=== PATIENT | male | born 1930 | race Caucasian/White ===

== ENCOUNTER 2016-07-21 11:04 | Emergency (ER) | payer OTHER ==
[2016-07-21 11:12] VITALS: TEMP 98.2; BMI 26.4
[2016-07-21] MEDS ORDERED: SODIUM CHLORIDE 0.9% 3 ML FLUSH FLUSH PRN (11:20)
[2016-07-21] MEDS ORDERED: ASPIRIN 325 MG TAB PO ONE (11:20)
[2016-07-21 11:33] LABS: AUTOMATED EOSINOPHIL 0.9 % (0-5); AUTOMATED LYMPH 25.9 % (17-44); AUTOMATED MONOCYTE 8.6 % (3-10); AUTOMATED NEUTROPHIL 63.6 % (45-76); MPV 9.1 fL (7.4-10.4)
[2016-07-21 11:53] LABS: BLOOD UREA NITROGEN 15 MG/DL (9-20); CALCIUM 8.8 MG/DL (8.4-10.2); CALCULATED OSMOLALITY 276 MOs/Kg (270-290); CHLORIDE 107 mEq/L (98-107); GLUCOSE 100 MG/DL (70-99); SODIUM LEVEL 143 mEq/L (137-146); TOTAL PROTEIN 8.1 G/DL (6.3-8.2)
[2016-07-21 11:58] LABS: LEUKOCYTES/URINE NEG (NEGATIVE); NITRITE/URINE NEG (NEGATIVE); URINE OCCULT BLOOD NEG (NEG/TRACE)
--- NOTE | 2016-07-21 12:00 | DIRPT ---
CLINICAL DATA: Chest pain chest pain EXAM: PORTABLE CHEST 1 VIEW COMPARISON: 05/03/2016 FINDINGS: Cardiomediastinal silhouette is stable. No acute infiltrate or pleural effusion. No pulmonary edema. Bony thorax is stable. IMPRESSION: No active disease. Electronically Signed By: Srinath Ahumada M.D. On: 07/21/2016 11:58
[2016-07-21 12:14] LABS: PARTIAL THROMB. TIME 25.2 SEC (22-35); PT-INR 1.1
--- NOTE | 2016-07-21 12:25 | EDPRACDOC ---
- General Information Chief Complaint: Chest Pain Stated Complaint: CHEST PAIN Time Seen by Provider: 07/21/16 11:37 Information Source: Patient Mode of Arrival: Car Home Medications: Home Medications Aspirin [Aspirin, Chewable] 81 mg PO DAILY 01/14/13 Simvastatin 40 mg PO QHS 01/14/13 Tamsulosin HCl [Flomax] 0.4 mg PO HS 01/14/13 Metoprolol Tartrate 25 mg PO BID #30 tablet 07/21/16 Allergies/Adverse Reactions: Allergies Allergy/AdvReac Type Severity Reaction Status Date / Time codeine Allergy Unknown Unknown Verified 07/21/16 12:14 oxycodone HCl [From Percocet] Allergy Unknown Unknown Verified 07/21/16 12:14 - History of Present Illness 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 NO CHEST PAIN NO CHEST PRESSURE NO NEAR SYNCOPE ROUTINE CHECK OF VITAL SIGNS DEMONSTRATE A RAPID HEART RATE. PATIENT SEEN AT PRIMARY CARE PHYSICIAN 'S OFFICE HEART RATE 130 REFERRED TO EMERGED FROM FURTHER EVALUATION. PATIENT HAS HISTORY OF AFIB. HAS A HISTORY REMOTELY OF GI BLEEDING WHILE ON ANTICOAGULATION. ED Past Medical History - History Reviewed Yes Nurses notes reviewed and agree except as marked - Patient Medical History Cardiac History: Reports: Coronary Artery Disease, Atrial Fibrillation, Hypertension, Heart Attack, Cardiac Catheterization, Hypercholesterolemia GI/ History: Reports: BPH Musculoskeletal History: Reports: Arthritis (? IN HANDS) Psychological History: Denies: Depression Systemic History: Denies: Cancer Surgical History: Reports: Cardiac Catheterization, Tonsillectomy/Adnoidectomy - Family Medical History Reports: Cardiac Disorders - Social Medical History Smoking Status: Never smoker ETOH: None Substance Abuse: None Lives With: Family Lives In: Home EDM Review of Systems - Review of Systems ROS Negative Except as Marked: Yes All systems reviewed and were negative except as marked - Physical Exam Constitutional: Alert (Awake), No apparent distress Oriented to: Time, Person, Place Last recorded Vital Signs: Last Vital Signs Temp 98.2 F 07/21/16 11:09 Pulse 83 07/21/16 11:42 Resp 16 07/21/16 11:42 BP 88/61 L 07/21/16 11:42 Pulse Ox 93 07/21/16 11:42 Oxygen Pulse Oxygen Saturation 93 O2 Device Room Air Oxygen Flow Rate Fraction of Inspired Oxygen ( FIO2) - HEENT Head: Normal ( normocephalic) Eye Exam: Normal (PERRL, EOMI, Sclera white) Oropharynx: Normal (Pharynx:Moist without exudate,Gums-no swelling) Tympanic Membrane: Normal ENT EAC: Normal TMJ: Normal Nose: No Symptoms Reported (septum midline) Neck: Normal (FROM, trachea at midline) - Respiratory/Cardiovascular Respiratory: Normal - CTA (BBS clear to auscultation without adventitious sounds ) Cardiovascular: Irregular. negative: Bradycardia, Tachycardia, Diastolic murmur , Systolic murmur - GI Auscultation: Normal (NABS) Palpation: Normal (Soft,No rebound or guarding, non distended) Tenderness: Non tender Koenig's Sign: Negative - Musculoskeletal Back: Normal (Non-Tender) Extremities: Normal (Normal tone, Pulses 2+ No cyanosis or edema, FROM) - Integumentary Skin: Normal, Warm, Dry Lymphatics: Normal (no adenopathy) - Neurologic Memory Impaired: Normal Motor Function: Normal (Normal tone, Pulses 2+ No cyanosis or edema, FROM) Cranial Nerve: Normal (CN II-X11 intact sensation, strength 5/5) Cerebellar: Normal Mood Description: Normal Perception: Normal - Action ASA given in the ED: No - Results 07/21/16 11:15 07/21/16 11:15 WBC 8.9 xk/uL (3.8-10.8) 07/21/16 11:15 RBC 5.01 xM/uL (4.70-6.10) 07/21/16 11:15 Hgb 15.1 g/dL (14.0-18.0) 07/21/16 11:15 Hct 44.6 % (42-52) 07/21/16 11:15 MCV 89 fL (80-94) 07/21/16 11:15 MCH 30.2 pg (27-32) 07/21/16 11:15 MCHC 33.9 g/dl (33-36) 07/21/16 11:15 RDW 14.1 % (11.5-14.5) 07/21/16 11:15 Plt Count 220 xk/uL (130-400) 07/21/16 11:15 MPV 9.1 fL (7.4-10.4) 07/21/16 11:15 Neut % (Auto) 63.6 % (45-76) 07/21/16 11:15 Lymph % (Auto) 25.9 % (17-44) 07/21/16 11:15 [place] % (Auto) 8.6 % (3-10) 07/21/16 11:15 Eos % (Auto) 0.9 % (0-5) 07/21/16 11:15 Baso % (Auto) 1.0 % (0-2) 07/21/16 11:15 Absolute Neuts (auto) 5.61 xk/uL (1.7-8.2) 07/21/16 11:15 Absolute Lymphs (auto) 2.23 xk/uL (0.65-4.75) 07/21/16 11:15 PT 10.9 SEC (9.2-11.2) 07/21/16 11:15 INR 1.1 07/21/16 11:15 APTT 25.2 SEC (22-35) 07/21/16 11:15 Sodium 143 mEq/L (137-146) 07/21/16 11:15 Potassium 5.0 mEq/L (3.5-5.1) 07/21/16 11:15 Chloride 107 mEq/L (98-107) 07/21/16 11:15 Carbon Dioxide 23 mMOL/L (22-33) 07/21/16 11:15 Anion Gap 18 mEq/L (8-16) H 07/21/16 11:15 BUN 15 MG/DL (9-20) 07/21/16 11:15 Creatinine 0.90 MG/DL (0.66-1.25) 07/21/16 11:15 Estimated GFR (MDRD) > 60 mL/min (>=60) 07/21/16 11:15 Glucose 100 MG/DL (70-99) H 07/21/16 11:15 Calculated Osmolality 276 MOs/Kg (270-290) 07/21/16 11:15 Calcium 8.8 MG/DL (8.4-10.2) 07/21/16 11:15 Total Bilirubin 0.9 MG/DL (0.2-1.3) 07/21/16 11:15 AST 30 IU/L (17-59) 07/21/16 11:15 ALT 19 IU/L (21-72) L 07/21/16 11:15 Alkaline Phosphatase 79 IU/L (50-160) 07/21/16 11:15 Troponin I < 0.01 ng/mL (<.04) 07/21/16 11:15 Auy-H-Mlenspjqnsj Pept 3850 pg/mL (0-1800) H 07/21/16 11:15 Total Protein 8.1 G/DL (6.3-8.2) 07/21/16 11:15 Albumin 4.2 G/DL (3.5-5.0) 07/21/16 11:15 Urine Color Pale yellow 07/21/16 11:41 Urine Clarity Clear 07/21/16 11:41 Urine pH 6.0 (5.0-8.0) 07/21/16 11:41 Ur Specific [place] 1.005 (1.003-1.035) 07/21/16 11:41 Urine Protein Neg (NEG/TRACE) 07/21/16 11:41 Urine Glucose (UA) Neg (NEGATIVE) 07/21/16 11:41 Urine Ketones Neg (NEGATIVE) 07/21/16 11:41 Urine Occult Blood Neg (NEG/TRACE) 07/21/16 11:41 Urine Nitrite Neg (NEGATIVE) 07/21/16 11:41 Urine Bilirubin Neg (NEGATIVE) 07/21/16 11:41 Urine Urobilinogen <2.0 MG/DL (0-1) 07/21/16 11:41 Ur Leukocyte Esterase Neg (NEGATIVE) 07/21/16 11:41 Urine RBC 2-5 (0-2) H 07/21/16 11:41 Urine WBC 2-5 (0-2) H 07/21/16 11:41 Ur Epithelial Cells Occ 07/21/16 11:41 Urine Bacteria Few (NEG/FEW) 07/21/16 11:41 Hyaline Casts 5-10 (0-2) H 07/21/16 11:41 Urine Mucus Sm amt (NEG/OCC) 07/21/16 11:41 Lab Results 07/21/16 07/21/16 07/21/16 11:41 11:15 11:15 WBC 8.9 RBC 5.01 Hgb 15.1 Hct 44.6 MCV 89 MCH 30.2 MCHC 33.9 RDW 14.1 Plt Count 220 MPV 9.1 Neut % (Auto) 63.6 Lymph % (Auto) 25.9 [place] % (Auto) 8.6 Eos % (Auto) 0.9 Baso % (Auto) 1.0 Absolute Neuts (auto) 5.61 Absolute Lymphs (auto) 2.23 PT 10.9 INR 1.1 APTT 25.2 Sodium Potassium Chloride Carbon Dioxide Anion Gap BUN Creatinine Estimated GFR (MDRD) Glucose Calculated Osmolality Calcium Total Bilirubin AST ALT Alkaline Phosphatase Troponin I Jxx-K-Poagasbuvuz Pept Total Protein Albumin Urine Color Pale yellow Urine Clarity Clear Urine pH 6.0 Ur Specific [place] 1.005 Urine Protein Neg Urine Glucose (UA) Neg Urine Ketones Neg Urine Occult Blood Neg Urine Nitrite Neg Urine Bilirubin Neg Urine Urobilinogen <2.0 Ur Leukocyte Esterase Neg Urine RBC 2-5 H Urine WBC 2-5 H Ur Epithelial Cells Occ Urine Bacteria Few Hyaline Casts 5-10 H Urine Mucus Sm amt 07/21/16 11:15 WBC RBC Hgb Hct MCV MCH MCHC RDW Plt Count MPV Neut % (Auto) Lymph % (Auto) [place] % (Auto) Eos % (Auto) Baso % (Auto) Absolute Neuts (auto) Absolute Lymphs (auto) PT INR APTT Sodium 143 Potassium 5.0 Chloride 107 Carbon Dioxide 23 Anion Gap 18 H BUN 15 Creatinine 0.90 Estimated GFR (MDRD) > 60 Glucose 100 H Calculated Osmolality 276 Calcium 8.8 Total Bilirubin 0.9 AST 30 ALT 19 L Alkaline Phosphatase 79 Troponin I < 0.01 Gjw-[id number]-Xuehzdtqlpc Pept 3850 H Total Protein 8.1 Albumin 4.2 Urine Color Urine Clarity Urine pH Ur Specific [place] Urine Protein Urine Glucose (UA) Urine Ketones Urine Occult Blood Urine Nitrite Urine Bilirubin Urine Urobilinogen Ur Leukocyte Esterase Urine RBC Urine WBC Ur Epithelial Cells Urine Bacteria Hyaline Casts Urine Mucus Laboratory Results - last 24 hr 07/21/16 07/21/16 07/21/16 11:15 11:15 11:15 WBC 8.9 RBC 5.01 Hgb 15.1 Hct 44.6 MCV 89 MCH 30.2 MCHC 33.9 RDW 14.1 Plt Count 220 MPV 9.1 Neut % (Auto) 63.6 Lymph % (Auto) 25.9 [place] % (Auto) 8.6 Eos % (Auto) 0.9 Baso % (Auto) 1.0 Absolute Neuts (auto) 5.61 Absolute Lymphs (auto) 2.23 PT 10.9 INR 1.1 APTT 25.2 Sodium 143 Potassium 5.0 Chloride 107 Carbon Dioxide 23 Anion Gap 18 H BUN 15 Creatinine 0.90 Estimated GFR (MDRD) > 60 Glucose 100 H Calculated Osmolality 276 Calcium 8.8 Total Bilirubin 0.9 AST 30 ALT 19 L Alkaline Phosphatase 79 Troponin I < 0.01 Ntz-D-Hfmueeciuyb Pept 3850 H Total Protein 8.1 Albumin 4.2 Urine Color Urine Clarity Urine pH Ur Specific [place] Urine Protein Urine Glucose (UA) Urine Ketones Urine Occult Blood Urine Nitrite Urine Bilirubin Urine Urobilinogen Ur Leukocyte Esterase Urine RBC Urine WBC Ur Epithelial Cells Urine Bacteria Hyaline Casts Urine Mucus 07/21/16 11:41 WBC RBC Hgb Hct MCV MCH MCHC RDW Plt Count MPV Neut % (Auto) Lymph % (Auto) [place] % (Auto) Eos % (Auto) Baso % (Auto) Absolute Neuts (auto) Absolute Lymphs (auto) PT INR APTT Sodium Potassium Chloride Carbon Dioxide Anion Gap BUN Creatinine Estimated GFR (MDRD) Glucose Calculated Osmolality Calcium Total Bilirubin AST ALT Alkaline Phosphatase Troponin I Kyr-J-Wrxmqgiaftq Pept Total Protein Albumin Urine Color Pale yellow Urine Clarity Clear Urine pH 6.0 Ur Specific [place] 1.005 Urine Protein Neg Urine Glucose (UA) Neg Urine Ketones Neg Urine Occult Blood Neg Urine Nitrite Neg Urine Bilirubin Neg Urine Urobilinogen <2.0 Ur Leukocyte Esterase Neg Urine RBC 2-5 H Urine WBC 2-5 H Ur Epithelial Cells Occ Urine Bacteria Few Hyaline Casts 5-10 H Urine Mucus Sm amt Laboratory Results 07/21/16 11:15 07/21/16 11:15 - EKG EKG #1 EKG Time: 11:13 -: Yes EKG interpreted by me Rate: bpm: 94 [place]: Normal Rhythm: Afib Block: None Hypertrophy: None ST: Nons[facility] - Diagnostic Imaging Chest Image interpreted by: Radiologist Patient Name: NAN CHAVARRIA JR LOC: ED : 1930 AGE: 85 Order Date:07/21/16 Date of Service: Report # [id number] Ord Physician: Melecio Lawson Exam # [id number] Emergency Physician: Vianney Corbett MD Exam(s): [id number] RAD/DG CHEST PORTABLE CLINICAL DATA: Chest pain chest pain EXAM: PORTABLE CHEST 1 VIEW COMPARISON: 05/03/2016 FINDINGS: Cardiomediastinal silhouette is stable. No acute infiltrate or pleural effusion. No pulmonary edema. Bony thorax is stable. IMPRESSION: No active disease. Electronically Signed By: Srinath Ahumada M.D. On: 07/21/2016 11:58 Electronically Signed By: Srinath Ahumada MD Electronically Signed Date/Time: Dictate Date/Time: 07/21/16 1156 Technologist: April Cervantes Transcribed By: Pepe Transcribed Date/Time: 07/21/16 1158 - Additional Information BP TRENDS WITH PRIOR VISITS REVIEWED: PT BASELINE SBP 88 - 125, TODAYS VITALS ARE WNL FOR PATIENT. PT FOLLOWED CLOSELY BY PCP, WILL DEFER ANTICOAG DECISION TO PCP - Departure Final Diagnosis: RATE CONTROLLED ATRIAL FIBRILLATION, Atrial fibrillation with rapid ventricular response Instructions: Chest Pain (ED), A-fib (Atrial Fibrillation) (ED) Education/Counseling Given To: Patient Education/Counseling Given Regarding: Diagnosis, Treatment, Prognosis Referrals: Nam Buckley MD [Primary Care Provider] - One Week Angelito Perez MD [Staff Physician] - One Week Prescriptions: New Metoprolol Tartrate 25 mg PO BID #30 tablet Discontinued Metoprolol Tartrate [Lopressor] 12.5 mg PO BID No Action Aspirin [Aspirin, Chewable] 81 mg PO DAILY Simvastatin 40 mg PO QHS Tamsulosin HCl [Flomax] 0.4 mg PO HS Forms: ED Discharge Instructions Additional Instructions: STOP METOPROLOL 12.5 MG START METOPROLOL 25 MG
[2016-07-21 17:32] VITALS: BP 128/70; PULSE 58
[2016-07-21] MEDS ORDERED: SODIUM CHLORIDE 0.9% 3 ML FLUSH FLUSH SCH (18:00)
== END 2016-07-21 17:31 | disposition home or self-care (01) ==
LOC: ED 11:04
DX: I48.91 Unspecified atrial fibrillation (principal); I25.2 Old myocardial infarction; I25.10 Atherosclerotic heart disease of native coronary artery without angina pectoris
CPT/HCPCS: 36415; 71010; 80053; 81001; 83880; 84484; 85025; 85610; 85730; 93005; 99284; A9270; J3490